=== PATIENT | male | born 1960 | race Caucasian/White ===

== ENCOUNTER 2018-10-02 15:06 | Emergency (ER) | payer OTHER ==
[2018-10-02] MEDS ORDERED: Acetaminophen 500 MG TAB ONE (15:24)
[2018-10-02] MEDS ORDERED: Ibuprofen 800 MG TAB ONE (15:24)
[2018-10-02] MEDS ORDERED: Adacel (T-DAP) 0.5 ML SYRINGE ONE (15:24)
[2018-10-02] MEDS ORDERED: Sulfameth/Trimethoprim DS 800-160mg TAB ONE (15:26)
== END 2018-10-02 16:47 | disposition home or self-care (01) ==
LOC: BURERS 15:06
DX: S61.212A Laceration without foreign body of right middle finger without damage to nail, initial encounter (principal); S60.221A Contusion of right hand, initial encounter; F17.220 Nicotine dependence, chewing tobacco, uncomplicated; W55.22XA Struck by cow, initial encounter
CPT/HCPCS: 12001; 90471; 90715; Q4049